=== PATIENT | female | born 1975 | race Caucasian/White ===

== ENCOUNTER → 2022-10-07 | Outpatient (CLI) | payer OTHER ==
--- NOTE | 2022-10-08 02:37 | MR ---
EXAMINATION TYPE: MR knee RT wo con DATE OF EXAM: 10/07/2022 COMPARISON: None HISTORY: Right knee pain Multiplanar multiecho imaging of the right knee performed without contrast. There is knee joint effusion. The anterior and posterior cruciate ligament are intact. The patella is intact. The collateral ligaments are intact. The medial and lateral menisci have fairly normal signal pattern. No significant joint space narrowin g. No bony destructive process. The patella appears intact. IMPRESSION: There is mild knee joint effusion suggestive of some nonspecific synovitis. No evidence of meniscal o r ligamentous tear.
== END | disposition home or self-care (01) ==
LOC: RADMRIMAIN 18:18
PROVIDERS: ATTEND Internal Medicine
DX: M25.461 Effusion, right knee (principal); M25.561 Pain in right knee; G89.29 Other chronic pain; I77.89 Other specified disorders of arteries and arterioles